=== PATIENT | male | born 1975 | race Two or more races ===

== ENCOUNTER 2019-12-24 12:03 | Day surgery (SDC) | payer BC, OTHER ==
[~2019-12-24 12:03] MED LIST: CEFAZOLIN SODIUM 1 GM in DEXTROSE 5%-WATER 50 ML IV PRN; LACTATED RINGERS 1000 ML IV PRN; LIDOCAINE 0.5% INJ-PF (5 MG/ML) 50 ML SDV SUBCUT PRN
[2019-12-24] MEDS ORDERED: MIDAZOLAM 2 MG/2 ML INJ ONE (12:53)
[2019-12-24] MEDS ORDERED: FENTANYL CITRATE INJ/PF 100 MCG/2 ML AMPUL ONE (12:53)
[2019-12-24] MEDS ORDERED: MORPHINE SULFATE 10 MG/ML INJ ONE (12:54)
[2019-12-24] MEDS ORDERED: ONDANSETRON HCL INJ/PF 4 MG/2 ML SDV ONE (12:54)
[2019-12-24] MEDS ORDERED: PROPOFOL INJ 200 MG/20 ML VIAL IV ONE (12:54)
[2019-12-24] MEDS ORDERED: DEXAMETHASONE SOD PHOSPHATE INJ 4 MG/1 ML VIAL ONE (12:54)
[2019-12-24] MEDS ORDERED: BUPIVACAINE HCL 0.5%-EPI 1:200000 INJ/PF 30 ML VIAL ONE (12:55)
[2019-12-24] MEDS ORDERED: CEFAZOLIN INJ 1 GM VIAL ONE (13:19)
[2019-12-24] MEDS ORDERED: BUPIVACAINE HCL 0.5%-EPI 1:200000 INJ/PF 30 ML VIAL INJ ONE (13:27)
[2019-12-24] MEDS ORDERED: MORPHINE SULFATE 10 MG/ML INJ IV PRN (13:29)
[2019-12-24] MEDS ORDERED: MEPERIDINE HCL/PF INJ 25 MG/1 ML DISP.SYRIN IV PRN (13:29)
[2019-12-24] MEDS ORDERED: DIPHENHYDRAMINE HCL 50 MG/ML VIAL IV PRN (13:29)
[2019-12-24] MEDS ORDERED: FENTANYL CITRATE INJ/PF 100 MCG/2 ML AMPUL IV PRN ×3 (13:29)
[2019-12-24] MEDS ORDERED: PROMETHAZINE HCL INJ 25 MG/1 ML VIAL IV PRN ×2 (13:29)
--- NOTE | 2019-12-24 13:42 | Operative Report ---
Nonrecallable Operative Report DATE OF SURGERY: 12/24/19 PREOPERATIVE DIAGNOSIS: mass posterior neck POSTOPERATIVE DIAGNOSIS: sebaceous cyst posterior neck OPERATION: Excision mass posterior neck SURGEON: JERAMIE KARIMI ANESTHESIA: LMAC TISSUE REMOVED OR ALTERED: Large sebaceous cyst posterior neck COMPLICATIONS: None ESTIMATED BLOOD LOSS: 10 cc INTRAOPERATIVE FINDINGS: Large 5 cm in diameter sebaceous cyst posterior neck PROCEDURE: Patient was brought to the operating awake alert stable condition placed in the upper table in a left lateral decubitus position and given IV sedation for the procedure. The large mass which was approximately 5 cm in diameter in the posterior neck was anesthetized with 1% lidocaine with epinephrine in an elliptical fashion around the mass. A elliptical incision was made around this 5 cm mass approximately 7 cm long by 3 cm wide. We then raised superior and inferior skin flaps with the Bovie cautery. Then using Bovie cautery dissected down to the deep subcutaneous precervical fascia with the Bovie cautery to encompass the entire mass and excised in total. It was excised with approximately a 0.5 cm margin circumferentially except at the point attached to the skin. After excision of the mass the deep subcutaneous tissue was reapproximated with interrupted 3-0 Vicryl and the skin was reapproximated with interrupted 3-0 nylon sterile dressing was applied to complete the procedure estimated blood loss was less than 10 cc. Patient was awakened in the operating transferred recovery in stable condition no complications Sponge needle counts were correct x2
--- NOTE | 2019-12-24 13:50 | Discharge Summary ---
Discharge Summary (SDC) - Discharge Final Diagnosis: Posterior neck mass Date of Surgery: 12/24/19 Condition: Good Prescriptions: Oxycodone HCl/Acetaminophen [Percocet 5-325 mg Tablet] 1 tab PO Q6HP PRN #15 tab PRN Reason: Oxycodone HCl/Acetaminophen [Percocet 7.5-325 mg Tablet] 1 - 2 tab PO Q6HP PRN #15 tab PRN Reason: Referrals: NATHAN COPELAND DO [Primary Care Provider] - Discharge Diet: As Tolerated Discharge Activity: Activity As Tolerated Report the Following to Your Physician Immediately: Nausea, Vomiting, Unusual Bleeding - Patient is to follow-up in surgical clinic in 10 to 14 days
[2019-12-24 19:12] VITALS: BP 139/99
== END 2019-12-24 15:20 | disposition home or self-care (01) ==
LOC: OROUT 12:03
PROVIDERS: ATTEND Surgery
DX: L72.0 Epidermal cyst (principal); I10 Essential (primary) hypertension; Z88.0 Allergy status to penicillin; G47.30 Sleep apnea, unspecified; Z87.891 Personal history of nicotine dependence; Z79.899 Other long term (current) drug therapy
CPT/HCPCS: 88305 ×2; 00300; 21555; J2250; J3490; J0690; J1100; J3010; J2405; J2704; 300; J2270; J7060

== ENCOUNTER → 2020-07-04 | Outpatient (CLI) | payer BC ==
[2020-07-04 09:16] LABS: HEMATOCRIT 41.9 % (37.9-51.0); HEMOGLOBIN 14.6 g/dL (13.5-17.0); MEAN CORPUSCULAR HEMOGLOBIN 29.7 pg (27.0-33.4); MEAN CORPUSCULAR VOLUME 85 fl (80-97); PLATELET COUNT 170 10^3/uL (150-450); RED BLOOD COUNT 4.94 10^6/uL (4.35-5.55); RED CELL DISTRIBUTION WIDTH 13.5 % (11.5-14.0)
[2020-07-04 09:39] LABS: ALBUMIN 4.2 g/dL (3.5-5.0); ALKALINE PHOSPHATASE 70 U/L (38-126); ANION GAP 7 (5-19); ASPARTATE AMINO TRANSFERASE 37 U/L (17-59); BILIRUBIN,DIRECT 0.2 mg/dL (0.0-0.4); BILIRUBIN,TOTAL 0.8 mg/dL (0.2-1.3); BLOOD UREA NITROGEN 13 mg/dL (7-20); CALCIUM 9.3 mg/dL (8.4-10.2); CARBON DIOXIDE 26 mmol/L (22-30); CHLORIDE 110 mmol/L (98-107); CHOLESTEROL 117.76 mg/dL (0-200); GLUCOSE 126 mg/dL (75-110); POTASSIUM 4.5 mmol/L (3.6-5.0); TOTAL PROTEIN 6.9 g/dL (6.3-8.2); TRIGLYCERIDES 170 mg/dL (<150)
[2020-07-04 09:52] LABS: DIRECT LDL 48 mg/dL (<100)
== END ==
LOC: OD 08:38
PROVIDERS: ATTEND Physician Assistant
DX: E78.5 Hyperlipidemia, unspecified (principal); I10 Essential (primary) hypertension; R06.00 Dyspnea, unspecified; R07.9 Chest pain, unspecified
CPT/HCPCS: 36415; 80048; 80061; 80076; 83735; 83880; 84443; 85027

== ENCOUNTER 2020-09-11 10:13 | Inpatient (IN) | payer BC ==
[2020-09-11 11:12] LABS: ABSOLUTE LYMPHOCYTES (AUTO) 0.9 10^3/uL (0.5-4.7); ABSOLUTE MONOCYTES (AUTO) 0.4 10^3/uL (0.1-1.4); ABSOLUTE NEUT (AUTO) 6.7 10^3/uL (1.7-8.2); BASOPHILS % (AUTO) 0.2 % (0-2); HEMATOCRIT 45.5 % (37.9-51.0); HEMOGLOBIN 15.8 g/dL (13.5-17.0); LYMPHOCYTES % (AUTO) 10.7 % (13-45); MEAN CORPUSCULAR HEMOGLOBIN 29.2 pg (27.0-33.4); MEAN CORPUSCULAR HGB CONC 34.6 g/dL (32.0-36.0); MEAN CORPUSCULAR VOLUME 84 fl (80-97); MONOCYTES % (AUTO) 4.7 % (3-13); RED BLOOD COUNT 5.39 10^6/uL (4.35-5.55); RED CELL DISTRIBUTION WIDTH 13.3 % (11.5-14.0); SEGMENTED NEUTROPHILS % (AUTO) 84.4 % (42-78); TOTAL CELLS COUNTED % (AUTO) 100 %; WHITE BLOOD COUNT 7.9 10^3/uL (4.0-10.5)
[2020-09-11] MEDS ORDERED: NORMAL SALINE 1000 ML 1,000 ML IV ONE ×2 (11:15→14:12)
[2020-09-11] MEDS ORDERED: METOPROLOL TARTRATE PF/INJ 5 MG/5 ML SDV IV ONE (11:16)
--- NOTE | 2020-09-11 11:17 | RADIOLOGY REPORT (SQ) ---
EXAM DESCRIPTION: CHEST SINGLE VIEW IMAGES COMPLETED DATE/TIME: 09/11/2020 11:02 am REASON FOR STUDY: SOB, CP COMPARISON: None to 2008 EXAM PARAMETERS: NUMBER OF VIEWS: One view. TECHNIQUE: Single frontal radiographic view of the chest acquired. RADIATION DOSE: NA LIMITATIONS: None. FINDINGS: LUNGS AND PLEURA: Low lung volumes. Minimal patchy parenchymal opacities. No pneumothora x. MEDIASTINUM AND HILAR STRUCTURES: No masses. Contour normal. HEART AND VASCULAR STRUCTURES: Heart normal in size. Normal vasculature. BONES: No acute findings. HARDWARE: None in the chest. OTHER: No other significant finding. IMPRESSION: Minimal patchy parenchymal opacities in the lungs with low lung volumes. Consistent wit h covid 19. TECHNICAL DOCUMENTATION: JOB ID: [id number] 2010 [employer]- All Rights Reserved Reading location - IP/workstation name: [email or web address]
--- NOTE | 2020-09-11 11:18 | ER Document Report ---
ED Respiratory Problem - General Chief Complaint: Breathing Difficulty Stated Complaint: DIFFICULTY BREATHING Time Seen by Provider: 09/11/20 10:40 Mode of Arrival: Ambulatory Notes: This 45-year-old man presents to the emergency department with a history of cough, shortness of breath and fatigue. He was also noted today to have a low- grade temperature. 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 His daughter tested positive for the coronavirus on September 03. He has not been tested and is concerned about his status. He denies nausea vomiting or diarrhea. He has a history of hypertension and tachycardia, has not taken his beta-macrina today. He denies chest pain or swelling/pain in the lower extremities. He is short of breath with any activity. TRAVEL OUTSIDE OF THE [place] IN LAST 30 DAYS: No - Related Data Allergies/Adverse Reactions: Penicillins Allergy (Verified 12/18/19 17:34) Past Medical History - Social History Smoking Status: Former Smoker Chew tobacco use (# tins/day): No Frequency of alcohol use: None Drug Abuse: None Family History: Reviewed & Not Pertinent Patient has homicidal ideation: No - Past Medical History Cardiac Medical History: Reports: Hx Hypertension Denies: Hx Coronary Artery Disease, Hx Heart Attack Pulmonary Medical History: Denies: Hx Asthma, Hx Bronchitis, Hx COPD, Hx Pneumonia Neurological Medical History: Denies: Hx Cerebrovascular Accident, Hx Seizures Musculoskeletal Medical History: Denies Hx Arthritis - Immunizations Hx Diphtheria, Pertussis, Tetanus Vaccination: No Review of Systems - Review of Systems Notes: Constitutional: + Fatigue, + chills. HENT: Negative for sore throat. Eyes: Negative for visual changes. Cardiovascular: Negative for chest pain. Respiratory: + Cough, + shortness of breath Gastrointestinal: See HPI Genitourinary: Negative for dysuria. Musculoskeletal: Negative for back pain. Skin: Negative for rash. Neurological: Negative for headaches, weakness or numbness. 10 point ROS negative except as marked above and in HPI. Physical Exam - Vital signs Vitals: Temp Resp Pulse Ox 99.7 F 28 H 96 09/11/20 10:32 09/11/20 10:32 09/11/20 10:32 - Notes Notes: PHYSICAL EXAMINATION: Physical Exam: General: Ill appearing 45-year-old male in no acute distress. HEENT: NC/AT, pupils equal round and reactive to light, MM moist,nares clear, oropharynx clear, airway patent Neck: supple, no adenopathy, no masses. Good range of motion Lungs: Coarse breath sounds CVS: Tachycardic rate and rhythm no murmur gallop or rub Abdomen: Soft, active, nontender, no masses, no hepatosplenomegaly Ext: No edema, clubbing or cyanosis. Neuro: Alert and responsive, moving all 4 extremities on command, cranial nerves intact, no focal findings Skin: Intact no open lesions, no rash Course - Re-evaluation Re-evalutation: 09/11/20 14:05 Patient with exposure to coronavirus positive Katherine now has shortness of breath cough and multiple symptoms with a chest x-ray and CT scan compatible with Covid19 pneumonia. I have discussed the findings with the patient as well as explained that he will need to be admitted to the hospital for management given his dyspnea and generalized weakness. We will continue IV fluids, he will get Decadron IV. And he will be admitted to the hospitalist inpatient service. I discussed the patient with the hospitalist, Dr. Beavers, he is in agreement with admitting the patient to the hospital for further treatment. - Vital Signs Vital signs: Temp Pulse Resp BP Pulse Ox 98.5 F 107 H 17 119/73 95 09/17/20 10:45 09/17/20 10:45 09/17/20 10:45 09/17/20 10:45 09/17/20 10:45 - Laboratory Result Diagrams: 09/16/20 04:45 09/14/20 05:07 Laboratory results interpreted by me: 09/11/20 09/11/20 09/11/20 10:50 10:50 10:50 Plt Count 93 L Lymph % (Auto) 10.7 L Seg Neutrophils % 84.4 H D-Dimer 1.47 H Creatinine 1.31 H Est GFR (MDRD) Non-Af 59 L Glucose 153 H COVID-19 (DANA) 09/11/20 13:00 Plt Count Lymph % (Auto) Seg Neutrophils % D-Dimer Creatinine Est GFR (MDRD) Non-Af Glucose COVID-19 (DANA) DETECTED A - Diagnostic Test Radiology reviewed: Image reviewed, Reports reviewed Radiology results interpreted by me: 09/11/20 14:08 Chest X-Ray 09/11/20 10:45 IMPRESSION: Minimal patchy parenchymal opacities in the lungs with low lung volumes. Consistent with covid 19. Chest/Abdomen CTA 09/11/20 11:17 IMPRESSION: No pulmonary emboli. Parenchymal opacities distribution typical of covid 19. Marked fatty liver. - EKG Interpretation by Al Rate: Tachycardia - EKG interpreted by Dr. Forrester: Sinus tachycardia, rate 124, DC interval 144 ms QT interval 292 ms, normal axis, premature atrial complexes, no acute ST or T wave abnormalities, no ischemic findings, there is no prior EKG for comparison. Interpretation sinus tachycardia, otherwise normal EKG. Discharge - Discharge Clinical Impression: Pneumonia due to COVID-19 virus, Dyspnea due to COVID-19, JAMEY (acute kidney injury), Tachycardia Hypertension Qualifiers: Hypertension type: unspecified Qualified Code(s): I10 - Essential (primary) hypertension Condition: Good Disposition: ADMITTED INPATIENT Admitting Provider: Ruthann (Hospitalist) Unit Admitted: Medical Floor
[2020-09-11 11:23] LABS: ALBUMIN 3.9 g/dL (3.5-5.0); ALKALINE PHOSPHATASE 54 U/L (38-126); ANION GAP 15 (5-19); ASPARTATE AMINO TRANSFERASE 49 U/L (17-59); BILIRUBIN,DIRECT 0.1 mg/dL (0.0-0.4); BLOOD UREA NITROGEN 16 mg/dL (7-20); CALCIUM 8.7 mg/dL (8.4-10.2); CARBON DIOXIDE 24 mmol/L (22-30); CHLORIDE 100 mmol/L (98-107); GLUCOSE 153 mg/dL (75-110); POTASSIUM 3.8 mmol/L (3.6-5.0); TOTAL PROTEIN 7.1 g/dL (6.3-8.2)
[2020-09-11 11:35] LABS: PLATELET COUNT 93 10^3/uL (150-450)
--- NOTE | 2020-09-11 12:04 | RADIOLOGY REPORT (SQ) ---
EXAM DESCRIPTION: CTA CHEST IMAGES COMPLETED DATE/TIME: 09/11/2020 11:48 am REASON FOR STUDY: Shortness of breath/tachycardia COMPARISON: None. TECHNIQUE: CT scan of the chest performed using helical scanning technique with dynamic intravenous contrast injection. Images reviewed with lung, soft tissue and bone windows. Reconstructed coronal and sagittal MPR images reviewed. Additional 3 dimensional post-processing performed to develop Maximal Intensity Projection images (MA P). All images stored on PACS. All CT scanners at this facility use dose modulation, iterative reconstruction, and/or weight based d osing when appropriate to reduce radiation dose to as low as reasonably achievable (ALARA). [facility]: Dose Right [facility]: CareDose [facility]: Dose Right [facility]: Teradose 4D [facility]: 60mo CONTRAST TYPE AND DOSE: contrast/concentration: Isovue 350.00 mmol/ml; Total Contrast Delivered: 98. 0 ml; Total Saline Delivered: 71.9 ml Contrast bolus adequate for pulmonary arteries and aorta. RENAL FUNCTION: None required. The patient is less than 50 years old. RADIATION DOSE: CT Rad equipment meets quality standard of care and radiation dose reduction techniq ues were employed. CTDIvol: 9.9 - 18.0 mGy. DLP: 626 mGy-cm. . LIMITATIONS: None. FINDINGS: LUNGS AND PLEURA: Patchy parenchymal opacities scattered throughout both lungs. No effusi ons. No pneumothorax. AORTA AND GREAT VESSELS: No aneurysm. Contrast bolus not optimized for the aorta. HEART: No pericardial effusion. No significant coronary artery calcifications. PULMONARY ARTERIES: No emboli visualized in the main pulmonary arteries or the segmental branches. HILAR AND MEDIASTINAL STRUCTURES: No identified masses or abnormal nodes. HARDWARE: None in the chest. UPPER ABDOMEN: Marked fatty liver. THYROID AND OTHER SOFT TISSUES: No masses. No adenopathy. BONES: No acute or significant finding. 3D MIPS: Confirm above findings. OTHER: No other significant finding. IMPRESSION: No pulmonary emboli. Parenchymal opacities distribution typical of covid 19. Marked fatty liver. COMMENT: Quality ID # [id number]: Final reports with documentation of one or more dose reduction techniques (e.g., Automated exposure control, adjustment of the mA and/or kV according to patient size, use of iterative reconstruction technique) TECHNICAL DOCUMENTATION: JOB ID: [id number] 2010 [employer]- All Rights Reserved Reading location - IP/workstation name: [email or web address]
[2020-09-11] MEDS ORDERED: DEXAMETHASONE SOD PHOS INJ 10 MG/1 ML VIAL IV ONE (14:14)
[2020-09-11] MEDS ORDERED: DEXAMETHASONE SOD PHOSPHATE INJ 4 MG/1 ML VIAL ONE (14:20)
[2020-09-11] MEDS ORDERED: ONDANSETRON 4 MG TAB.RAPDIS PO PRN (17:18)
[2020-09-11] MEDS ORDERED: ACETAMINOPHEN 325 MG TABLET PO PRN (17:18)
[2020-09-11] MEDS ORDERED: ONDANSETRON HCL INJ/PF 4 MG/2 ML SDV IV PRN (17:18)
[2020-09-11] MEDS ORDERED: IPRATROPIUM/ALBUTEROL 0.5-2.5 MG/3 ML AMPUL NEB PRN (17:18)
--- NOTE | 2020-09-11 18:17 | EKG REPORT ---
SEVERITY:- OTHERWISE NORMAL ECG - SINUS TACHYCARDIA ATRIAL PREMATURE COMPLEX : Confirmed by: Alfredo Tidwell MD 11-Sep-2020 18:16:45
--- NOTE | 2020-09-11 18:57 | PDOC H&P ---
History of Present Illness Admission Date/PCP: 09/11/20 14:55 TAVARES COLÓN PA-C History of Present Illness: NERYSOTERO ROSE is a 45 year old male with past medical history significant for HTN, HLD, CAD who presents with an 8-day history of progressive nausea/vomiting/diarrhea/headache/anosmia/dysgeusia/productive cough/shortness of breath/BRASWELL which prompted patient to come to the ED for further evaluation. 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 Patient is currently intermittently requiring supplemental oxygen but mostly breathing comfortably on room air. We have started him on dexamethasone. Chest x-ray was done which showed bilateral opacities and CTPA was done which showed no PE but did show bilateral groundglass opacities diffusely consistent with Covid pneumonia. D-dimer was elevated as well. On admission, patient has an JAMEY as well. Presumably this is prerenal due to systemic viral illness and dehydration from nausea/vomiting. Patient is admitted to the coronavirus isolation unit with continuous monitoring. Past Medical History Cardiac Medical History: Reports: Hypertension Denies: Coronary Artery Disease, Myocardial Infarction Pulmonary Medical History: Denies: Asthma, Bronchitis, Chronic Obstructive Pulmonary Disease (COPD), Pneumonia Neurological Medical History: Denies: Seizures Musculoskeltal Medical History: Denies: Arthritis Psychiatric Medical History: Denies: Depression Hematology: Denies: Anemia Past Surgical History Past Surgical History: Reports: None Social History Information Source: Patient, Emergency Med Personnel Lives with: Family Smoking Status: Former Smoker Cigarettes Packs Per Day: 1 Electronic Cigarette use?: No Number of Years Smokin Frequency of Alcohol Use: None Hx Recreational Drug Use: No Drugs: None Hx Prescription Drug Abuse: No - Advance Directive Resuscitation Status: Full Code Surrogate healthcare decision maker:: Admitting diagnosis: COVID-19 pneumonia All aspects of code status discussed with patient/POA including cardioversion, chest compressions, and intubation and the patient/POA indicated they wish to be full code MPOA is designated as: Ashley Miller, Time spent: Greater than 16 minutes Family History Family History: CAD Parental Family History Reviewed: Yes Children Family History Reviewed: Yes Sibling(s) Family History Reviewed.: Yes Medication/Allergy Home Medications: Aspirin [Ecotrin 81 mg EC Tablet] 81 mg PO DAILY 11/08/20 Atorvastatin Calcium [Lipitor 20 mg Tablet] 20 mg PO QHS 09/11/20 Losartan Potassium [Cozaar 25 mg Tablet] 25 mg PO DAILY 09/11/20 Metoprolol Tartrate [Lopressor 25 mg Tablet] 25 mg PO Q12 09/11/20 Allergies/Adverse Reactions: Penicillins Allergy (Verified 12/18/19 17:34) Review of Systems All systems: reviewed and no additional remarkable complaints except as stated - Per HPI otherwise negative Physical Exam Vital Signs: Temp Pulse Resp BP Pulse Ox 100.1 F 103 H 20 124/84 95 09/11/20 17:20 09/11/20 17:20 09/11/20 17:20 09/11/20 17:20 09/11/20 17:20 Intake & Output 09/10/20 09/11/20 09/12/20 06:59 06:59 06:59 Intake Total 1999 Balance 1999 Weight 102.8 kg Exam: General appearance: PRESENT: no acute distress, well-developed, well-nourished, -[place]ican male, states he is intermittently short of breath Head exam: PRESENT: atraumatic, normocephalic Eye exam: PRESENT: conjunctiva pink. ABSENT: scleral icterus Mouth exam: PRESENT: moist Respiratory exam: PRESENT: Scant bilateral fine rhonchi ABSENT: rales, wheezes Cardiovascular exam: PRESENT: RRR. ABSENT: diastolic murmur, rubs, systolic murmur GI/Abdominal exam: PRESENT: normal bowel sounds, soft. ABSENT: distended, guarding, mass, organolmegaly, rebound, tenderness Neurological exam: PRESENT: alert, awake, oriented to person, oriented to place, oriented to time, oriented to situation Psychiatric exam: PRESENT: appropriate affect, normal mood Skin exam: PRESENT: dry, intact, warm Results Laboratory Results: 09/11/20 10:50 09/11/20 10:50 09/11/20 09/11/20 10:50 10:50 WBC 7.9 RBC 5.39 Hgb 15.8 Hct 45.5 MCV 84 MCH 29.2 MCHC 34.6 RDW 13.3 Plt Count 93 L Seg Neutrophils % 84.4 H Sodium 138.8 Potassium 3.8 Chloride 100 Carbon Dioxide 24 Anion Gap 15 BUN 16 Creatinine 1.31 H Est GFR ( Amer) > 60 Glucose 153 H Calcium 8.7 Total Bilirubin 1.0 AST 49 Alkaline Phosphatase 54 Total Protein 7.1 Albumin 3.9 Impressions: Chest X-Ray 09/11/20 10:45 IMPRESSION: Minimal patchy parenchymal opacities in the lungs with low lung volumes. Consistent with covid 19. Chest/Abdomen CTA 09/11/20 11:17 IMPRESSION: No pulmonary emboli. Parenchymal opacities distribution typical of covid 19. Marked fatty liver. Assessment and Plan - Diagnosis (1) Pneumonia due to COVID-19 virus Is this a current diagnosis for this admission?: Yes Plan: Symptomatic 8 days prior to admission with nausea/vomiting/diarrhea/headache/tenesmus/dysgeusia/productive cough/shortness of breath/BRASWELL Started on dexamethasone for intermittent hypoxemia requiring supplemental oxygen of at least 2 L We will start remdesivir if patient worsens to meet criteria for this No specific indication for antibiotics at this time, no clear evidence of bacterial component Watch for secondary bacterial pneumonia development O2 monitoring Nebulizer treatments as needed (2) JAMEY (acute kidney injury) Is this a current diagnosis for this admission?: Yes Plan: Presumably prerenal due to nausea/vomiting/dehydration and systemic illness IV fluids Trend BMP (3) Acute hypoxemic respiratory failure due to COVID-19 Is this a current diagnosis for this admission?: Yes (4) HLD (hyperlipidemia) Is this a current diagnosis for this admission?: Yes Plan: Continue statin (5) CAD (coronary artery disease) Qualifiers: Coronary Disease-Associated Artery/Lesion type: [place] artery [place] vs. transplanted heart: [place] heart Associated angina: without angina Qualified Code(s): I25.10 - Atherosclerotic heart disease of [place] coronary artery with out angina pectoris Is this a current diagnosis for this admission?: Yes Plan: Follows with Dr. Segovia in cardiology Resume home medications (6) Hypertension Qualifiers: Hypertension type: unspecified Qualified Code(s): I10 - Essential (primary) hypertension Is this a current diagnosis for this admission?: Yes Plan: Controlled - Time Time Spent with patient: 35 or more minutes Medications reviewed and adjusted accordingly: Yes Anticipated Discharge Disposition: Home, Self Care Anticipated Discharge Timeframe: within 72 hours - Inpatient Certification Based on my medical assessment, after consideration of the patient's comorbidities, presenting symptoms, or acuity I expect that the services needed warrant INPATIENT care.: Yes I certify that my determination is in accordance with my understanding of Medicare's requirements for reasonable and necessary INPATIENT services [42 CFR 412.3e].: Yes Medical Necessity: Significant Comorbidiites Make Outpatient Treatment Too Risky, Need Close Monitoring Due to Risk of Patient Decompensation, Need For IV Fluids, Need for Nebulizer Therapy and Monitoring of Response, Risk of Complication if Not Cared For in Hospital, Risk of Diagnosis Which Will Require Inpatient Eval/Care/Monitoring
[2020-09-11] MEDS: RINGERS SOLUTION,LACTATED 1,000 ML IV PRN (21:00)
[2020-09-11] MEDS: METOPROLOL TARTRATE 25 MG TABLET PO SCH (21:22)
[2020-09-11] MEDS: ATORVASTATIN CALCIUM 20 MG TABLET PO SCH (21:23)
[2020-09-12] MEDS: GUAIFENESIN/CODEINE PHOS 100-10 MG/ 5 ML UDC PO PRN ×2 (01:40→09:46)
[2020-09-12 07:08] LABS: ABSOLUTE LYMPHOCYTES (AUTO) 0.7 10^3/uL (0.5-4.7); ABSOLUTE MONOCYTES (AUTO) 0.6 10^3/uL (0.1-1.4); ABSOLUTE NEUT (AUTO) 9.2 10^3/uL (1.7-8.2); BASOPHILS % (AUTO) 0.2 % (0-2); HEMATOCRIT 41.7 % (37.9-51.0); HEMOGLOBIN 14.6 g/dL (13.5-17.0); LYMPHOCYTES % (AUTO) 6.3 % (13-45); MEAN CORPUSCULAR HEMOGLOBIN 29.6 pg (27.0-33.4); MEAN CORPUSCULAR VOLUME 85 fl (80-97); MONOCYTES % (AUTO) 5.7 % (3-13); PLATELET COUNT 100 10^3/uL (150-450); RED BLOOD COUNT 4.94 10^6/uL (4.35-5.55); RED CELL DISTRIBUTION WIDTH 13.1 % (11.5-14.0); SEGMENTED NEUTROPHILS % (AUTO) 87.8 % (42-78); TOTAL CELLS COUNTED % (AUTO) 100 %; WHITE BLOOD COUNT 10.5 10^3/uL (4.0-10.5)
[2020-09-12 07:41] LABS: ANION GAP 9 (5-19); BLOOD UREA NITROGEN 16 mg/dL (7-20); CALCIUM 8.5 mg/dL (8.4-10.2); CARBON DIOXIDE 27 mmol/L (22-30); CHLORIDE 106 mmol/L (98-107); GLUCOSE 116 mg/dL (75-110); PHOSPHORUS 3.4 mg/dL (2.5-4.5); POTASSIUM 4.3 mmol/L (3.6-5.0)
[2020-09-12] MEDS ORDERED: INFLUENZA QUAD (6MOS+) 2020-21 VAC 0.5 ML SYR IM ONE (08:00)
[2020-09-12] MEDS ORDERED: PHARMACY COMMUNICATION ORDER MC NR (08:15)
[2020-09-12] MEDS: LOSARTAN POTASSIUM 25 MG TABLET PO SCH (09:36)
[2020-09-12] MEDS: ASPIRIN 81 MG TABLET, ENT COATED PO SCH (09:36)
[2020-09-12] MEDS: METOPROLOL TARTRATE 25 MG TABLET PO SCH ×2 (09:36→22:28)
[2020-09-12] MEDS: DOCUSATE SODIUM 100 MG CAPSULE PO SCH (09:36)
[2020-09-12] MEDS: ENOXAPARIN SODIUM INJ 40 MG/0.4 ML DISP.SYRIN SUBCUT SCH (09:37)
[2020-09-12] MEDS ORDERED: DEXAMETHASONE 4 MG TABLET PO SCH (10:00)
[2020-09-12] MEDS: RINGERS SOLUTION,LACTATED 1,000 ML IV PRN (13:46)
--- NOTE | 2020-09-12 17:01 | PDOC PROGRESS REPORT ---
Subjective Subjective:: EMIL ROSE is a 45 year old male with past medical history significant for HTN, HLD, CAD who presents with an 8-day history of progressive nausea/vomiting/diarrhea/headache/anosmia/dysgeusia/productive cough/shortness of breath/BRASWELL which prompted patient to come to the ED for further evaluation. 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 Patient is currently intermittently requiring supplemental oxygen but mostly breathing comfortably on room air. We have started him on dexamethasone. Chest x-ray was done which showed bilateral opacities and CTPA was done which showed no PE but did show bilateral groundglass opacities diffusely consistent with Covid pneumonia. D-dimer was elevated as well. On admission, patient has an JAMEY as well. Presumably this is prerenal due to systemic viral illness and dehydration from nausea/vomiting. Patient is admitted to the coronavirus isolation unit with continuous monitoring. 09/12/2020 Patient is now consistently requiring supplemental oxygen. He is continued on dexamethasone. I have added usual Covid supplements/vitamins. I have also ordered remdesivir. Patient is mildly tachycardic and is maintained on 3 L nasal cannula with an oxygen saturation 94%. Covid testing still pending, will hopefully have this back tomorrow. Patient has no new complaints otherwise. He remains in the Covid isolation unit. Reason For Visit: COVID 19, PNEUMONIA,ACUTE HYPOXEMIC RESPIRATORY Physical Exam Vital Signs: Temp Pulse Resp BP Pulse Ox 99.6 F 100 24 H 137/88 H 97 09/12/20 12:00 09/12/20 12:00 09/12/20 12:00 09/12/20 12:00 09/12/20 12:00 Intake & Output 09/11/20 09/12/20 09/13/20 06:59 06:59 06:59 Intake Total 1999 1000 Balance 1999 1000 Weight 106.7 kg Exam: General appearance: PRESENT: no acute distress, well-developed, well-nourished, -[place] male, states he is a bit more short of breath today Head exam: PRESENT: atraumatic, normocephalic Eye exam: PRESENT: conjunctiva pink. ABSENT: scleral icterus Mouth exam: PRESENT: moist Respiratory exam: PRESENT: Unchanged scant bilateral fine rhonchi ABSENT: rales, wheezes Cardiovascular exam: PRESENT: RRR. ABSENT: diastolic murmur, rubs, systolic murmur GI/Abdominal exam: PRESENT: normal bowel sounds, soft. ABSENT: distended, guarding, mass, organolmegaly, rebound, tenderness Neurological exam: PRESENT: alert, awake, oriented to person, oriented to place, oriented to time, oriented to situation Psychiatric exam: PRESENT: appropriate affect, normal mood Skin exam: PRESENT: dry, intact, warm Results Laboratory Results: 09/12/20 06:27 09/12/20 06:27 09/12/20 09/12/20 06:27 06:27 WBC 10.5 RBC 4.94 Hgb 14.6 Hct 41.7 MCV 85 MCH 29.6 MCHC 35.0 RDW 13.1 Plt Count 100 L Seg Neutrophils % 87.8 H Sodium 142.2 Potassium 4.3 Chloride 106 Carbon Dioxide 27 Anion Gap 9 BUN 16 Creatinine 1.04 Est GFR ( Amer) > 60 Glucose 116 H Calcium 8.5 Phosphorus 3.4 Magnesium 2.3 Impressions: Chest X-Ray 09/11/20 10:45 IMPRESSION: Minimal patchy parenchymal opacities in the lungs with low lung volumes. Consistent with covid 19. Chest/Abdomen CTA 09/11/20 11:17 IMPRESSION: No pulmonary emboli. Parenchymal opacities distribution typical of covid 19. Marked fatty liver. Assessment and Plan - Diagnosis (1) Pneumonia due to COVID-19 virus Is this a current diagnosis for this admission?: Yes (2) JAMEY (acute kidney injury) Is this a current diagnosis for this admission?: Yes (3) Acute hypoxemic respiratory failure due to COVID-19 Is this a current diagnosis for this admission?: Yes (4) HLD (hyperlipidemia) Is this a current diagnosis for this admission?: Yes (5) CAD (coronary artery disease) Qualifiers: Coronary Disease-Associated Artery/Lesion type: [place] artery [place] vs. transplanted heart: [place] heart Associated angina: without angina Qualified Code(s): I25.10 - Atherosclerotic heart disease of [place] coronary artery without angina pectoris Is this a current diagnosis for this admission?: Yes (6) Hypertension Qualifiers: Hypertension type: unspecified Qualified Code(s): I10 - Essential (primary) hypertension Is this a current diagnosis for this admission?: Yes - Plan Summary Summary: (1) Pneumonia due to COVID-19 virus Is this a current diagnosis for this admission?: Yes Plan: Symptomatic 8 days prior to admission with nausea/vomiting/diarrhea/headache/tenesmus/dysgeusia/productive cough/shortness of breath/BRASWELL Started on dexamethasone for intermittent hypoxemia requiring supplemental oxygen of at least 2 L Remdesivir ordered Started on usual COVID-19 supplements/vitamins No specific indication for antibiotics at this time, no clear evidence of bacterial component Watch for secondary bacterial pneumonia development O2 monitoring Nebulizer treatments as needed (2) JAMEY (acute kidney injury) Is this a current diagnosis for this admission?: Yes Plan: Presumably prerenal due to nausea/vomiting/dehydration and systemic illness IV fluids Trend BMP Resolved (3) Acute hypoxemic respiratory failure due to COVID-19 Is this a current diagnosis for this admission?: Yes Gradually worsened oxygen requirements (4) HLD (hyperlipidemia) Is this a current diagnosis for this admission?: Yes Plan: Continue statin (5) CAD (coronary artery disease) Qualifiers: Coronary Disease-Associated Artery/Lesion type: [place] artery [place] vs. transplanted heart: [place] heart Associated angina: without angina Qualified Code(s): I25.10 - Atherosclerotic heart disease of [place] coronary artery without angina pectoris Is this a current diagnosis for this admission?: Yes Plan: Follows with Dr. Segovia in cardiology Resume home medications (6) Hypertension Qualifiers: Hypertension type: unspecified Qualified Code(s): I10 - Essential (primary) hypertension Is this a current diagnosis for this admission?: Yes Plan: Controlled - Time Time Spent with patient: 35 or more minutes Medications reviewed and adjusted accordingly: Yes Anticipated Discharge Disposition: Home, Self Care Anticipated Discharge Timeframe: within 72 hours - Inpatient Certification Based on my medical assessment, after consideration of the patient's com orbidities, presenting symptoms, or acuity I expect that the services needed warrant INPATIENT care.: Yes I certify that my determination is in accordance with my understanding of Medicare's requirements for reasonable and necessary INPATIENT services [42 CFR 412.3e].: Yes Medical Necessity: Significant Comorbidiites Make Outpatient Treatment Too Risky, Need Close Monitoring Due to Risk of Patient Decompensation, Need for Nebulizer Therapy and Monitoring of Response, Risk of Complication if Not Cared For in Hospital, Risk of Diagnosis Which Will Require Inpatient Eval/Care/Monitoring
[2020-09-12] MEDS: CHOLECALCIFEROL (D3) 1,000 UNIT (25 MCG) TABLET PO SCH (17:38)
[2020-09-12] MEDS: ZINC SULFATE 220 MG CAPSULE PO SCH (17:39)
[2020-09-12] MEDS: ASCORBIC ACID 500 MG TABLET PO SCH (17:39)
[2020-09-12] MEDS ORDERED: FAMOTIDINE 20 MG TABLET PO ONE (19:00)
[2020-09-12] MEDS: ATORVASTATIN CALCIUM 20 MG TABLET PO SCH (22:28)
[2020-09-12] MEDS: MELATONIN 5 MG TABLET PO SCH (22:28)
[2020-09-13 02:26] LABS: ABSOLUTE LYMPHOCYTES (AUTO) 0.7 10^3/uL (0.5-4.7); ABSOLUTE MONOCYTES (AUTO) 0.2 10^3/uL (0.1-1.4); ABSOLUTE NEUT (AUTO) 10.6 10^3/uL (1.7-8.2); BASOPHILS % (AUTO) 0.2 % (0-2); HEMATOCRIT 40.6 % (37.9-51.0); MEAN CORPUSCULAR HEMOGLOBIN 29.1 pg (27.0-33.4); MEAN CORPUSCULAR HGB CONC 34.5 g/dL (32.0-36.0); MEAN CORPUSCULAR VOLUME 84 fl (80-97); MONOCYTES % (AUTO) 1.9 % (3-13); PLATELET COUNT 106 10^3/uL (150-450); RED BLOOD COUNT 4.81 10^6/uL (4.35-5.55); SEGMENTED NEUTROPHILS % (AUTO) 91.9 % (42-78); TOTAL CELLS COUNTED % (AUTO) 100 %; WHITE BLOOD COUNT 11.5 10^3/uL (4.0-10.5)
[2020-09-13 06:07] LABS: ANION GAP 11 (5-19); BLOOD UREA NITROGEN 19 mg/dL (7-20); CALCIUM 8.5 mg/dL (8.4-10.2); CARBON DIOXIDE 23 mmol/L (22-30); CHLORIDE 107 mmol/L (98-107); GLUCOSE 108 mg/dL (75-110); POTASSIUM 3.9 mmol/L (3.6-5.0)
[2020-09-13] MEDS ORDERED: RINGERS SOLUTION,LACTATED 1,000 ML IV PRN ×2 (06:38→07:57)
[2020-09-13] MEDS: ASPIRIN 81 MG TABLET, ENT COATED PO SCH (09:49)
[2020-09-13] MEDS: METOPROLOL TARTRATE 25 MG TABLET PO SCH ×2 (09:51→21:49)
[2020-09-13] MEDS: DEXAMETHASONE SOD PHOSPHATE INJ 4 MG/1 ML VIAL IV SCH (09:52)
[2020-09-13] MEDS: DOCUSATE SODIUM 100 MG CAPSULE PO SCH (09:52)
[2020-09-13] MEDS: ASCORBIC ACID 500 MG TABLET PO SCH ×2 (09:52→17:20)
[2020-09-13] MEDS: ZINC SULFATE 220 MG CAPSULE PO SCH (09:52)
[2020-09-13] MEDS: FAMOTIDINE 20 MG TABLET PO SCH ×2 (09:52→17:20)
[2020-09-13] MEDS: CHOLECALCIFEROL (D3) 1,000 UNIT (25 MCG) TABLET PO SCH (09:52)
[2020-09-13] MEDS: LOSARTAN POTASSIUM 25 MG TABLET PO SCH (09:52)
[2020-09-13] MEDS ORDERED: DEXAMETHASONE SOD PHOS INJ 10 MG/1 ML VIAL IV SCH (10:00)
[2020-09-13] MEDS ORDERED: REMDESIVIR (EUA) 200 MG in NORMAL SALINE 250 ML IV ONE (10:00)
--- NOTE | 2020-09-13 12:57 | PDOC PROGRESS REPORT ---
Subjective Date:: 09/13/20 Subjective:: EMIL ROSE is a 45 year old male with past medical history significant for HTN, HLD, CAD who presents with an 8-day history of progressive nausea/vomiting/diarrhea/headache/anosmia/dysgeusia/productive cough/shortness of breath/BRASWELL which prompted patient to come to the ED for further evaluation. 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 Patient is currently intermittently requiring supplemental oxygen but mostly breathing comfortably on room air. We have started him on dexamethasone. Chest x-ray was done which showed bilateral opacities and CTPA was done which showed no PE but did show bilateral groundglass opacities diffusely consistent with Covid pneumonia. D-dimer was elevated as well. On admission, patient has an JAMEY as well. Presumably this is prerenal due to systemic viral illness and dehydration from nausea/vomiting. Patient is admitted to the coronavirus isolation unit with continuous monitoring. 09/12/2020 Patient is now consistently requiring supplemental oxygen. He is continued on dexamethasone. I have added usual Covid supplements/vitamins. I have also ordered remdesivir. Patient is mildly tachycardic and is maintained on 3 L nasal cannula with an oxygen saturation 94%. Covid testing still pending, will hopefully have this back tomorrow. Patient has no new complaints otherwise. He remains in the Covid isolation unit. 09/13/20 D3 hospital stay. Patient was seen and examined at bedside. He is currently on 5L NC saturating 96%. He reports that his breathing is much better today. He is COVID POSITIVE and has since been started on Remdesivir and dexamethasone. He had 1 episode of bloody bowel movement today. Hgb stable at 14, Plt 106. We will continue to see if he has further episodes but he is safe to receive DVT prophylaxis still. Reason For Visit: COVID 19, PNEUMONIA,ACUTE HYPOXEMIC RESPIRATORY Physical Exam Vital Signs: Temp Pulse Resp BP Pulse Ox 99.7 F 102 H 19 110/66 97 09/13/20 07:22 09/13/20 07:22 09/13/20 07:22 09/13/20 07:22 09/13/20 07:22 Intake & Output 09/12/20 09/13/20 09/14/20 06:59 06:59 06:59 Intake Total 1999 1650 1000 Output Total 550 Balance 1999 1100 1000 Weight 106.7 kg 107.5 kg General appearance: PRESENT: cooperative, mild distress Head exam: PRESENT: atraumatic, normocephalic Eye exam: PRESENT: EOMI, PERRLA Mouth exam: PRESENT: moist Neck exam: PRESENT: full ROM Respiratory exam: PRESENT: rales, symmetrical, tachypnea Cardiovascular exam: PRESENT: RRR, +S1, +S2 GI/Abdominal exam: PRESENT: normal bowel sounds, soft. ABSENT: rebound, tenderness Extremities exam: PRESENT: full ROM Musculoskeletal exam: PRESENT: full ROM Neurological exam: PRESENT: alert, awake, oriented to person, oriented to place, oriented to time Psychiatric exam: PRESENT: normal mood Results Laboratory Results: 09/13/20 02:08 09/13/20 04:32 09/13/20 09/13/20 02:08 04:32 WBC 11.5 H RBC 4.81 Hgb 14.0 Hct 40.6 MCV 84 MCH 29.1 MCHC 34.5 RDW 13.0 Plt Count 106 L Seg Neutrophils % 91.9 H Sodium 141.0 Potassium 3.9 Chloride 107 Carbon Dioxide 23 Anion Gap 11 BUN 19 Creatinine 0.85 Est GFR ( Amer) > 60 Glucose 108 Calcium 8.5 Impressions: Chest X-Ray 09/11/20 10:45 IMPRESSION: Minimal patchy parenchymal opacities in the lungs with low lung volumes. Consistent with covid 19. Chest/Abdomen CTA 09/11/20 11:17 IMPRESSION: No pulmonary emboli. Parenchymal opacities distribution typical of covid 19. Marked fatty liver. Assessment and Plan - Diagnosis (1) Acute hypoxemic respiratory failure due to COVID-19 Is this a current diagnosis for this admission?: Yes Plan: -Currently on 5 L nasal cannula saturating 96% -Secondary to Covid pneumonia -Currently on remdesivir day 1 and dexamethasone day 2 -Continue O2 support to maintain O2 saturation more than 93% -DuoNebs as needed - Incentive spirometry (2) Pneumonia due to COVID-19 virus Is this a current diagnosis for this admission?: Yes Plan: Symptomatic 8 days prior to admission with nausea/vomiting/diarrhea/headache/tenesmus/dysgeusia/productive cough/shortness of breath/BRASWELL -Covid test positive on dexamethasone 6 mg IV day 2 -Remdesivir day 1 - Vitamin C and D, zinc -Continue oxygen support (3) JAMEY (acute kidney injury) Is this a current diagnosis for this admission?: Yes Plan: - resolved Presumably prerenal due to nausea/vomiting/dehydration and systemic illness - will continue to monitor (4) CAD (coronary artery disease) Qualifiers: Coronary Disease-Associated Artery/Lesion type: [place] artery [place] vs. transplanted heart: [place] heart Associated angina: without angina Qualified Code(s): I25.10 - Atherosclerotic heart disease of [place] coronary artery without angina pectoris Is this a current diagnosis for this admission?: Yes Plan: Follows with Dr. Segovia in cardiology Resume home medications (5) HLD (hyperlipidemia) Is this a current diagnosis for this admission?: Yes Plan: Continue statin (6) Hypertension Qualifiers: Hypertension type: unspecified Qualified Code(s): I10 - Essential (primary) hypertension Is this a current diagnosis for this admission?: Yes Plan: Controlled - resumed home medications - Time Time Spent with patient: 25-34 minutes Medications reviewed and adjusted accordingly: Yes Anticipated Discharge Disposition: Home, Self Care Anticipated Discharge Timeframe: to be determined
[2020-09-13] MEDS: ATORVASTATIN CALCIUM 20 MG TABLET PO SCH (21:50)
[2020-09-13] MEDS: MELATONIN 5 MG TABLET PO SCH (21:50)
[2020-09-14 06:01] LABS: ABSOLUTE LYMPHOCYTES (AUTO) 0.8 10^3/uL (0.5-4.7); ABSOLUTE MONOCYTES (AUTO) 0.7 10^3/uL (0.1-1.4); ABSOLUTE NEUT (AUTO) 7.3 10^3/uL (1.7-8.2); BASOPHILS % (AUTO) 0.1 % (0-2); HEMATOCRIT 39.3 % (37.9-51.0); HEMOGLOBIN 13.6 g/dL (13.5-17.0); LYMPHOCYTES % (AUTO) 9.3 % (13-45); MEAN CORPUSCULAR HEMOGLOBIN 29.1 pg (27.0-33.4); MEAN CORPUSCULAR HGB CONC 34.6 g/dL (32.0-36.0); MEAN CORPUSCULAR VOLUME 84 fl (80-97); MONOCYTES % (AUTO) 8.1 % (3-13); PLATELET COUNT 131 10^3/uL (150-450); RED BLOOD COUNT 4.68 10^6/uL (4.35-5.55); RED CELL DISTRIBUTION WIDTH 12.9 % (11.5-14.0); SEGMENTED NEUTROPHILS % (AUTO) 82.5 % (42-78); TOTAL CELLS COUNTED % (AUTO) 100 %; WHITE BLOOD COUNT 8.9 10^3/uL (4.0-10.5)
[2020-09-14 06:25] LABS: ANION GAP 10 (5-19); BLOOD UREA NITROGEN 18 mg/dL (7-20); CALCIUM 8.6 mg/dL (8.4-10.2); CARBON DIOXIDE 23 mmol/L (22-30); CHLORIDE 109 mmol/L (98-107); GLUCOSE 134 mg/dL (75-110); POTASSIUM 4.4 mmol/L (3.6-5.0)
[2020-09-14] MEDS: CHOLECALCIFEROL (D3) 1,000 UNIT (25 MCG) TABLET PO SCH (10:06)
[2020-09-14] MEDS: ZINC SULFATE 220 MG CAPSULE PO SCH (10:06)
[2020-09-14] MEDS: DOCUSATE SODIUM 100 MG CAPSULE PO SCH (10:06)
[2020-09-14] MEDS: FAMOTIDINE 20 MG TABLET PO SCH ×2 (10:06→17:57)
[2020-09-14] MEDS: ASCORBIC ACID 500 MG TABLET PO SCH ×2 (10:06→17:57)
[2020-09-14] MEDS: ASPIRIN 81 MG TABLET, ENT COATED PO SCH (10:06)
[2020-09-14] MEDS: LOSARTAN POTASSIUM 25 MG TABLET PO SCH (10:06)
[2020-09-14] MEDS: ENOXAPARIN SODIUM INJ 40 MG/0.4 ML DISP.SYRIN SUBCUT SCH (10:07)
[2020-09-14] MEDS: METOPROLOL TARTRATE 25 MG TABLET PO SCH ×2 (10:07→21:18)
[2020-09-14] MEDS: DEXAMETHASONE SOD PHOSPHATE INJ 4 MG/1 ML VIAL IV SCH (10:07)
[2020-09-14] MEDS: REMDESIVIR (EUA) 100 MG in NORMAL SALINE 250 ML IV SCH (10:35)
--- NOTE | 2020-09-14 12:27 | PDOC PROGRESS REPORT ---
Subjective Date:: 09/14/20 Subjective:: EMIL ROSE is a 45 year old male with past medical history significant for HTN, HLD, CAD who presents with an 8-day history of progressive nausea/vomiting/diarrhea/headache/anosmia/dysgeusia/productive cough/shortness of breath/BRASWELL which prompted patient to come to the ED for further evaluation. 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 Patient is currently intermittently requiring supplemental oxygen but mostly breathing comfortably on room air. We have started him on dexamethasone. Chest x-ray was done which showed bilateral opacities and CTPA was done which showed no PE but did show bilateral groundglass opacities diffusely consistent with Covid pneumonia. D-dimer was elevated as well. On admission, patient has an JAMEY as well. Presumably this is prerenal due to systemic viral illness and dehydration from nausea/vomiting. Patient is admitted to the coronavirus isolation unit with continuous monitoring. 09/12/2020 Patient is now consistently requiring supplemental oxygen. He is continued on dexamethasone. I have added usual Covid supplements/vitamins. I have also ordered remdesivir. Patient is mildly tachycardic and is maintained on 3 L nasal cannula with an oxygen saturation 94%. Covid testing still pending, will hopefully have this back tomorrow. Patient has no new complaints otherwise. He remains in the Covid isolation unit. 09/13/20 D3 hospital stay. Patient was seen and examined at bedside. He is currently on 5L NC saturating 96%. He reports that his breathing is much better today. He is COVID POSITIVE and has since been started on Remdesivir and dexamethasone. He had 1 episode of bloody bowel movement today. Hgb stable at 14, Plt 106. We will continue to see if he has further episodes but he is safe to receive DVT prophylaxis still. 09/14/20 D4 Hospital stay. Patient was seen and examined at bedside. He is requiring less O2 support today, down to 2L from 5l. Breathing has improved according to him, appetite better. He remains afebrile. Reason For Visit: COVID 19, PNEUMONIA,ACUTE HYPOXEMIC RESPIRATORY Physical Exam Vital Signs: Temp Pulse Resp BP Pulse Ox 97.9 F 92 20 123/72 93 09/14/20 11:18 09/14/20 11:18 09/14/20 11:18 09/14/20 11:18 09/14/20 11:18 Intake & Output 09/13/20 09/14/20 09/15/20 06:59 06:59 06:59 Intake Total 1650 2250 Output Total 550 800 Balance 1100 1450 Weight 107.5 kg 108.2 kg General appearance: PRESENT: cooperative, mild distress Head exam: PRESENT: atraumatic, normocephalic Eye exam: PRESENT: EOMI, PERRLA Mouth exam: PRESENT: moist Neck exam: PRESENT: full ROM Respiratory exam: PRESENT: rales, symmetrical, unlabored Cardiovascular exam: PRESENT: RRR, +S1, +S2 GI/Abdominal exam: PRESENT: normal bowel sounds, soft. ABSENT: rebound, tenderness Extremities exam: PRESENT: full ROM Musculoskeletal exam: PRESENT: full ROM Neurological exam: PRESENT: alert, awake, oriented to person, oriented to place, oriented to time, oriented to situation Psychiatric exam: PRESENT: normal mood Results Laboratory Results: 09/14/20 05:07 09/14/20 05:07 09/14/20 09/14/20 05:07 05:07 WBC 8.9 RBC 4.68 Hgb 13.6 Hct 39.3 MCV 84 MCH 29.1 MCHC 34.6 RDW 12.9 Plt Count 131 L Seg Neutrophils % 82.5 H Sodium 142.2 Potassium 4.4 Chloride 109 H Carbon Dioxide 23 Anion Gap 10 BUN 18 Creatinine 0.79 Est GFR ( Amer) > 60 Glucose 134 H Calcium 8.6 09/12/20 04:40 Sputum Gram Stain - Final 09/12/20 04:40 Sputum Sputum Culture - Final Staphylococcus Aureus Haemophilus Influenzae Reduced Normal Radha Impressions: Chest X-Ray 09/11/20 10:45 IMPRESSION: Minimal patchy parenchymal opacities in the lungs with low lung volumes. Consistent with covid 19. Chest/Abdomen CTA 09/11/20 11:17 IMPRESSION: No pulmonary emboli. Parenchymal opacities distribution typical of covid 19. Marked fatty liver. Assessment and Plan - Diagnosis (1) Acute hypoxemic respiratory failure due to COVID-19 Is this a current diagnosis for this admission?: Yes Plan: -Currently on 2 L nasal cannula saturating 96% -Secondary to Covid pneumonia -Currently on remdesivir day 2 and dexamethasone day 3 -Continue O2 support to maintain O2 saturation more than 93% -DuoNebs as needed - Incentive spirometry (2) Pneumonia due to COVID-19 virus Is this a current diagnosis for this admission?: Yes Plan: Symptomatic 8 days prior to admission with nausea/vomiting/diarrhea/headache/tenesmus/dysgeusia/productive cough/shortness of breath/BRASWELL -Covid test positive on dexamethasone 6 mg IV day 3 -Remdesivir day 2 - Vitamin C and D, zinc -Continue oxygen support (3) JAMEY (acute kidney injury) Is this a current diagnosis for this admission?: Yes Plan: - resolved Presumably prerenal due to nausea/vomiting/dehydration and systemic illness - will continue to monitor (4) CAD (coronary artery disease) Qualifiers: Coronary Disease-Associated Artery/Lesion type: [place] artery [place] vs. transplanted heart: [place] heart Associated angina: without angina Qualified Code(s): I25.10 - Atherosclerotic heart disease of [place] coronary artery without angina pectoris Is this a current diagnosis for this admission?: Yes Plan: Follows with Dr. Segovia in cardiology Resume home medications (5) HLD (hyperlipidemia) Is this a current diagnosis for this admission?: Yes Plan: Continue statin (6) Hypertension Qualifiers: Hypertension type: unspecified Qualified Code(s): I10 - Essential (primary) hypertension Is this a current diagnosis for this admission?: Yes Plan: Controlled - resumed home medications - Time Time Spent with patient: 25-34 minutes Medications reviewed and adjusted accordingly: Yes Anticipated Discharge Disposition: Home, Self Care Anticipated Discharge Timeframe: to be determined
[2020-09-14] MEDS: ATORVASTATIN CALCIUM 20 MG TABLET PO SCH (21:12)
[2020-09-14] MEDS: MELATONIN 5 MG TABLET PO SCH (21:12)
[2020-09-15] MEDS: REMDESIVIR (EUA) 100 MG in NORMAL SALINE 250 ML IV SCH (10:28)
[2020-09-15] MEDS: DOCUSATE SODIUM 100 MG CAPSULE PO SCH ×2 (10:29→10:40)
[2020-09-15] MEDS: ASPIRIN 81 MG TABLET, ENT COATED PO SCH ×2 (10:29→10:41)
[2020-09-15] MEDS: DEXAMETHASONE SOD PHOSPHATE INJ 4 MG/1 ML VIAL IV SCH (10:29)
[2020-09-15] MEDS: ZINC SULFATE 220 MG CAPSULE PO SCH (10:29)
[2020-09-15] MEDS: ENOXAPARIN SODIUM INJ 40 MG/0.4 ML DISP.SYRIN SUBCUT SCH ×2 (10:29→10:32)
[2020-09-15] MEDS: METOPROLOL TARTRATE 25 MG TABLET PO SCH ×2 (10:29→23:08)
[2020-09-15] MEDS: LOSARTAN POTASSIUM 25 MG TABLET PO SCH (10:29)
[2020-09-15] MEDS: ASCORBIC ACID 500 MG TABLET PO SCH ×2 (10:29→17:35)
[2020-09-15] MEDS: FAMOTIDINE 20 MG TABLET PO SCH ×2 (10:29→17:34)
[2020-09-15] MEDS: CHOLECALCIFEROL (D3) 1,000 UNIT (25 MCG) TABLET PO SCH (10:54)
--- NOTE | 2020-09-15 13:00 | PDOC PROGRESS REPORT ---
Subjective Date:: 09/15/20 Subjective:: EMIL ROSE is a 45 year old male with past medical history significant for HTN, HLD, CAD who presents with an 8-day history of progressive nausea/vomiting/diarrhea/headache/anosmia/dysgeusia/productive cough/shortness of breath/BRASWELL which prompted patient to come to the ED for further evaluation. 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 Patient is currently intermittently requiring supplemental oxygen but mostly breathing comfortably on room air. We have started him on dexamethasone. Chest x-ray was done which showed bilateral opacities and CTPA was done which showed no PE but did show bilateral groundglass opacities diffusely consistent with Covid pneumonia. D-dimer was elevated as well. On admission, patient has an JAMEY as well. Presumably this is prerenal due to systemic viral illness and dehydration from nausea/vomiting. Patient is admitted to the coronavirus isolation unit with continuous monitoring. 09/12/2020 Patient is now consistently requiring supplemental oxygen. He is continued on dexamethasone. I have added usual Covid supplements/vitamins. I have also ordered remdesivir. Patient is mildly tachycardic and is maintained on 3 L nasal cannula with an oxygen saturation 94%. Covid testing still pending, will hopefully have this back tomorrow. Patient has no new complaints otherwise. He remains in the Covid isolation unit. 09/13/20 D3 hospital stay. Patient was seen and examined at bedside. He is currently on 5L NC saturating 96%. He reports that his breathing is much better today. He is COVID POSITIVE and has since been started on Remdesivir and dexamethasone. He had 1 episode of bloody bowel movement today. Hgb stable at 14, Plt 106. We will continue to see if he has further episodes but he is safe to receive DVT prophylaxis still. 09/14/20 D4 Hospital stay. Patient was seen and examined at bedside. He is requiring less O2 support today, down to 2L from 5l. Breathing has improved according to him, appetite better. He remains afebrile. 09/15/20 D5 hospital stay. Patient was seen and examined at bedside. He is doing well, off O2 support. No diarrhea, no abdominal pain, no SOB. He is eating well with good appetite. Reason For Visit: COVID 19, PNEUMONIA,ACUTE HYPOXEMIC RESPIRATORY Physical Exam Vital Signs: Temp Pulse Resp BP Pulse Ox 98.7 F 79 18 117/77 93 09/15/20 12:35 09/15/20 12:35 09/15/20 12:35 09/15/20 12:35 09/15/20 12:35 Intake & Output 09/14/20 09/15/20 09/16/20 06:59 06:59 06:59 Intake Total 2250 250 250 Output Total 800 Balance 1450 250 250 Weight 108.2 kg 109.1 kg General appearance: PRESENT: no acute distress, cooperative Head exam: PRESENT: atraumatic, normocephalic Eye exam: PRESENT: EOMI, PERRLA Mouth exam: PRESENT: moist Neck exam: PRESENT: full ROM Respiratory exam: PRESENT: rales, rhonchi, symmetrical, unlabored Cardiovascular exam: PRESENT: RRR, +S1, +S2 Pulses: PRESENT: +2 pedal pulses bilateral GI/Abdominal exam: PRESENT: normal bowel sounds, soft. ABSENT: rebound, tenderness Extremities exam: PRESENT: full ROM Musculoskeletal exam: PRESENT: full ROM Neurological exam: PRESENT: alert, awake, oriented to person, oriented to place, oriented to time, oriented to situation Psychiatric exam: PRESENT: normal mood Skin exam: PRESENT: normal color Results Laboratory Results: 09/14/20 05:07 09/14/20 05:07 09/12/20 04:40 Sputum Gram Stain - Final 09/12/20 04:40 Sputum Sputum Culture - Final Staphylococcus Aureus Haemophilus Influenzae Reduced Normal Radha Impressions: Chest X-Ray 09/11/20 10:45 IMPRESSION: Minimal patchy parenchymal opacities in the lungs with low lung volumes. Consistent with covid 19. Chest/Abdomen CTA 09/11/20 11:17 IMPRESSION: No pulmonary emboli. Parenchymal opacities distribution typical of covid 19. Marked fatty liver. Assessment and Plan - Diagnosis (1) Acute hypoxemic respiratory failure due to COVID-19 Is this a current diagnosis for this admission?: Yes Plan: -Currently on 2 L nasal cannula saturating 96% -Secondary to Covid pneumonia -Currently on remdesivir day 3 and dexamethasone day 4 -Continue O2 support to maintain O2 saturation more than 93% -DuoNebs as needed - Incentive spirometry (2) Pneumonia due to COVID-19 virus Is this a current diagnosis for this admission?: Yes Plan: Symptomatic 8 days prior to admission with nausea/vomiting/diarrhea/headache/tenesmus/dysgeusia/productive cough/shortness of breath/BRASWELL -Covid test positive on dexamethasone 6 mg IV day 4 -Remdesivir day 3 - Vitamin C and D, zinc -Continue oxygen support (3) JAMEY (acute kidney injury) Is this a current diagnosis for this admission?: Yes Plan: - resolved Presumably prerenal due to nausea/vomiting/dehydration and systemic illness - will continue to monitor (4) CAD (coronary artery disease) Qualifiers: Coronary Disease-Associated Artery/Lesion type: [place] artery [place] vs. transplanted heart: [place] heart Associated angina: without angina Qualified Code(s): I25.10 - Atherosclerotic heart disease of [place] coronary artery without angina pectoris Is this a current diagnosis for this admission?: Yes Plan: Follows with Dr. Segovia in cardiology Resume home medications (5) HLD (hyperlipidemia) Is this a current diagnosis for this admission?: Yes Plan: Continue statin (6) Hypertension Qualifiers: Hypertension type: unspecified Qualified Code(s): I10 - Essential (primary) hypertension Is this a current diagnosis for this admission?: Yes Plan: Controlled - resumed home medications - Time Time Spent with patient: 25-34 minutes Medications reviewed and adjusted accordingly: Yes Anticipated Discharge Disposition: Home, Self Care Anticipated Discharge Timeframe: to be determined
[2020-09-15] MEDS: ATORVASTATIN CALCIUM 20 MG TABLET PO SCH (23:08)
[2020-09-15] MEDS: MELATONIN 5 MG TABLET PO SCH (23:08)
[2020-09-16 06:07] LABS: ABSOLUTE LYMPHOCYTES (AUTO) 1.6 10^3/uL (0.5-4.7); ABSOLUTE NEUT (AUTO) 6.5 10^3/uL (1.7-8.2); BASOPHILS % (AUTO) 0.3 % (0-2); EOSINOPHILS % (AUTO) 0.3 % (0-6); HEMATOCRIT 41.4 % (37.9-51.0); LYMPHOCYTES % (AUTO) 17.7 % (13-45); MEAN CORPUSCULAR HEMOGLOBIN 28.5 pg (27.0-33.4); MEAN CORPUSCULAR HGB CONC 33.7 g/dL (32.0-36.0); MEAN CORPUSCULAR VOLUME 84 fl (80-97); MONOCYTES % (AUTO) 10.6 % (3-13); PLATELET COUNT 165 10^3/uL (150-450); RED BLOOD COUNT 4.91 10^6/uL (4.35-5.55); SEGMENTED NEUTROPHILS % (AUTO) 71.1 % (42-78); TOTAL CELLS COUNTED % (AUTO) 100 %; WHITE BLOOD COUNT 9.1 10^3/uL (4.0-10.5)
[2020-09-16] MEDS: FAMOTIDINE 20 MG TABLET PO SCH ×2 (10:17→17:45)
[2020-09-16] MEDS: CHOLECALCIFEROL (D3) 1,000 UNIT (25 MCG) TABLET PO SCH (10:17)
[2020-09-16] MEDS: ASPIRIN 81 MG TABLET, ENT COATED PO SCH (10:17)
[2020-09-16] MEDS: REMDESIVIR (EUA) 100 MG in NORMAL SALINE 250 ML IV SCH (10:17)
[2020-09-16] MEDS: LOSARTAN POTASSIUM 25 MG TABLET PO SCH (10:17)
[2020-09-16] MEDS: DOCUSATE SODIUM 100 MG CAPSULE PO SCH (10:17)
[2020-09-16] MEDS: ZINC SULFATE 220 MG CAPSULE PO SCH (10:17)
[2020-09-16] MEDS: ASCORBIC ACID 500 MG TABLET PO SCH ×2 (10:17→17:45)
[2020-09-16] MEDS: METOPROLOL TARTRATE 25 MG TABLET PO SCH ×2 (10:17→21:48)
[2020-09-16] MEDS: ENOXAPARIN SODIUM INJ 40 MG/0.4 ML DISP.SYRIN SUBCUT SCH (10:18)
[2020-09-16] MEDS: DEXAMETHASONE SOD PHOSPHATE INJ 4 MG/1 ML VIAL IV SCH (10:18)
--- NOTE | 2020-09-16 14:36 | PDOC PROGRESS REPORT ---
Subjective Date:: 09/16/20 Subjective:: EMIL ROSE is a 45 year old male with past medical history significant for HTN, HLD, CAD who presents with an 8-day history of progressive nausea/vomiting/diarrhea/headache/anosmia/dysgeusia/productive cough/shortness of breath/BRASWELL which prompted patient to come to the ED for further evaluation. Patient is a truck car and bus cleaner and states he has a sick contact family member at home with coronavirus. Patient is currently intermittently requiring supplemental oxygen but mostly breathing comfortably on room air. We have started him on dexamethasone. Chest x-ray was done which showed bilateral opacities and CTPA was done which showed no PE but did show bilateral groundglass opacities diffusely consistent with Covid pneumonia. D-dimer was elevated as well. On admission, patient has an JAMEY as well. Presumably this is prerenal due to systemic viral illness and dehydration from nausea/vomiting. Patient is admitted to the coronavirus isolation unit with continuous monitoring. 09/12/2020 Patient is now consistently requiring supplemental oxygen. He is continued on dexamethasone. I have added usual Covid supplements/vitamins. I have also ordered remdesivir. Patient is mildly tachycardic and is maintained on 3 L nasal cannula with an oxygen saturation 94%. Covid testing still pending, will hopefully have this back tomorrow. Patient has no new complaints otherwise. He remains in the Covid isolation unit. 09/13/20 D3 hospital stay. Patient was seen and examined at bedside. He is currently on 5L NC saturating 96%. He reports that his breathing is much better today. He is COVID POSITIVE and has since been started on Remdesivir and dexamethasone. He had 1 episode of bloody bowel movement today. Hgb stable at 14, Plt 106. We will continue to see if he has further episodes but he is safe to receive DVT prophylaxis still. 09/14/20 D4 Hospital stay. Patient was seen and examined at bedside. He is requiring less O2 support today, down to 2L from 5l. Breathing has improved according to him, appetite better. He remains afebrile. 09/15/20 D5 hospital stay. Patient was seen and examined at bedside. He is doing well, off O2 support. No diarrhea, no abdominal pain, no SOB. He is eating well with good appetite. 11/13/20 D6 hospital stay. Patient was seen and examined at bedside. Doing well overall . Eager to finish his treatment and go home tomorrow. Reason For Visit: COVID 19, PNEUMONIA,ACUTE HYPOXEMIC RESPIRATORY Physical Exam Vital Signs: Temp Pulse Resp BP Pulse Ox 98.5 F 91 16 115/76 93 09/16/20 11:28 09/16/20 11:28 09/16/20 11:28 09/16/20 11:28 09/16/20 11:28 Intake & Output 09/15/20 09/16/20 09/17/20 06:59 06:59 06:59 Intake Total 250 487 250 Balance 250 487 250 Weight 109.1 kg 103.4 kg General appearance: PRESENT: no acute distress, cooperative Head exam: PRESENT: atraumatic, normocephalic Eye exam: PRESENT: EOMI, PERRLA Mouth exam: PRESENT: moist Neck exam: PRESENT: full ROM Respiratory exam: PRESENT: clear to auscultation cori, symmetrical, unlabored Cardiovascular exam: PRESENT: RRR, +S1, +S2 Pulses: PRESENT: +2 pedal pulses bilateral GI/Abdominal exam: PRESENT: normal bowel sounds, soft. ABSENT: rebound, tenderness Extremities exam: PRESENT: full ROM Musculoskeletal exam: PRESENT: full ROM Neurological exam: PRESENT: alert, awake, oriented to person, oriented to place, oriented to time, oriented to situation Psychiatric exam: PRESENT: normal mood Skin exam: PRESENT: normal color Results Laboratory Results: 09/16/20 04:45 09/14/20 05:07 09/16/20 04:45 WBC 9.1 RBC 4.91 Hgb 14.0 Hct 41.4 MCV 84 MCH 28.5 MCHC 33.7 RDW 13.0 Plt Count 165 Seg Neutrophils % 71.1 Impressions: Chest X-Ray 09/11/20 10:45 IMPRESSION: Minimal patchy parenchymal opacities in the lungs with low lung volumes. Consistent with covid 19. Chest/Abdomen CTA 09/11/20 11:17 IMPRESSION: No pulmonary emboli. Parenchymal opacities distribution typical of covid 19. Marked fatty liver. Assessment and Plan - Diagnosis (1) Acute hypoxemic respiratory failure due to COVID-19 Is this a current diagnosis for this admission?: Yes Plan: -Currently on 2 L nasal cannula saturating 96% -Secondary to Covid pneumonia -Currently on remdesivir day 4 and dexamethasone day 5. Last dose of remdesivir tomorrow then discharge -Continue O2 support to maintain O2 saturation more than 93% -DuoNebs as needed - Incentive spirometry (2) Pneumonia due to COVID-19 virus Is this a current diagnosis for this admission?: Yes Plan: Symptomatic 8 days prior to admission with nausea/vomiting/diarrhea/headache/tenesmus/dysgeusia/productive cough/shortness of breath/BRASWELL - Covid test positive - on dexamethasone 6 mg IV day 4 - Remdesivir day 4 - Vitamin C and D, zinc -Continue oxygen support (3) JAMEY (acute kidney injury) Is this a current diagnosis for this admission?: Yes Plan: - resolved Presumably prerenal due to nausea/vomiting/dehydration and systemic illness - will continue to monitor (4) CAD (coronary artery disease) Qualifiers: Coronary Disease-Associated Artery/Lesion type: [place] artery [place] vs. transplanted heart: [place] heart Associated angina: without angina Qualified Code(s): I25.10 - Atherosclerotic heart disease of [place] coronary artery without angina pectoris Is this a current diagnosis for this admission?: Yes Plan: Follows with Dr. Segovia in cardiology Resume home medications (5) HLD (hyperlipidemia) Is this a current diagnosis for this admission?: Yes Plan: Continue statin (6) Hypertension Qualifiers: Hypertension type: unspecified Qualified Code(s): I10 - Essential (primary) hypertension Is this a current diagnosis for this admission?: Yes Plan: Controlled - resumed home medications - Time Time Spent with patient: 25-34 minutes Medications reviewed and adjusted accordingly: Yes Anticipated Discharge Disposition: Home, Self Care Anticipated Discharge Timeframe: within 48 hours
[2020-09-16] MEDS: ATORVASTATIN CALCIUM 20 MG TABLET PO SCH (21:48)
[2020-09-16] MEDS: MELATONIN 5 MG TABLET PO SCH (21:48)
[2020-09-17 08:28] VITALS: BP 119/73
--- NOTE | 2020-09-17 09:51 | EKG REPORT ---
SEVERITY:- BORDERLINE ECG - FAST SINUS ARRHYTHMIA, RATE [id number] BORDERLINE T ABNORMALITIES, INFERIOR LEADS : Confirmed by: Merced Peck 17-Sep-2020 09:51:01
[2020-09-17] MEDS: DEXAMETHASONE SOD PHOSPHATE INJ 4 MG/1 ML VIAL IV SCH (09:58)
[2020-09-17] MEDS: ENOXAPARIN SODIUM INJ 40 MG/0.4 ML DISP.SYRIN SUBCUT SCH (09:58)
[2020-09-17] MEDS: ASCORBIC ACID 500 MG TABLET PO SCH (09:59)
[2020-09-17] MEDS: METOPROLOL TARTRATE 25 MG TABLET PO SCH (09:59)
[2020-09-17] MEDS: FAMOTIDINE 20 MG TABLET PO SCH (09:59)
[2020-09-17] MEDS: ZINC SULFATE 220 MG CAPSULE PO SCH (09:59)
[2020-09-17] MEDS: DOCUSATE SODIUM 100 MG CAPSULE PO SCH (09:59)
[2020-09-17] MEDS: CHOLECALCIFEROL (D3) 1,000 UNIT (25 MCG) TABLET PO SCH (09:59)
[2020-09-17] MEDS: ASPIRIN 81 MG TABLET, ENT COATED PO SCH (10:00)
[2020-09-17] MEDS: LOSARTAN POTASSIUM 25 MG TABLET PO SCH (10:00)
[2020-09-17] MEDS: REMDESIVIR (EUA) 100 MG in NORMAL SALINE 250 ML IV SCH (10:02)
--- NOTE | 2020-09-17 13:23 | PDOC DISCHARGE SUMMARY ---
Impression - Admit/DC Date/PCP Admission Date/Primary Care Provider: 09/11/20 14:55 TAVARES COLÓN PA-C Discharge Date: 09/17/20 - Discharge Diagnosis (1) Acute hypoxemic respiratory failure due to COVID-19 Is this a current diagnosis for this admission?: Yes (2) Pneumonia due to COVID-19 virus Is this a current diagnosis for this admission?: Yes (3) JAMEY (acute kidney injury) Is this a current diagnosis for this admission?: Yes (4) CAD (coronary artery disease) Is this a current diagnosis for this admission?: Yes (5) HLD (hyperlipidemia) Is this a current diagnosis for this admission?: Yes (6) Hypertension Is this a current diagnosis for this admission?: Yes - Assessment Summary: (1) Acute hypoxemic respiratory failure due to COVID-19 Is this a current diagnosis for this admission?: Yes Plan: -Currently on 2 L nasal cannula saturating 96% -Secondary to Covid pneumonia -Currently on remdesivir day 4 and dexamethasone day 5. Last dose of remdesivir tomorrow then discharge -Continue O2 support to maintain O2 saturation more than 93% -DuoNebs as needed - Incentive spirometry (2) Pneumonia due to COVID-19 virus Is this a current diagnosis for this admission?: Yes Plan: Symptomatic 8 days prior to admission with na usea/vomiting/diarrhea/headache/tenesmus/dysgeusia/productive cough/shortness of breath/BRASWELL - Covid test positive - on dexamethasone 6 mg IV day 4 - Remdesivir day 4 - Vitamin C and D, zinc -Continue oxygen support (3) JAMEY (acute kidney injury) Is this a current diagnosis for this admission?: Yes Plan: - resolved Presumably prerenal due to nausea/vomiting/dehydration and systemic illness - will continue to monitor (4) CAD (coronary artery disease) Qualifiers: Coronary Disease-Associated Artery/Lesion type: [place] artery [place] vs. transplanted heart: [place] heart Associated angina: without angina Qualified Code(s): I25.10 - Atherosclerotic heart disease of [place] coronary artery without angina pectoris Is this a current diagnosis for this admission?: Yes Plan: Follows with Dr. Segovia in cardiology Resume home medications (5) HLD (hyperlipidemia) Is this a current diagnosis for this admission?: Yes Plan: Continue statin (6) Hypertension Qualifiers: Hypertension type: unspecified Qualified Code(s): I10 - Essential (primary) hypertension Is this a current diagnosis for this admission?: Yes Plan: Controlled - resumed home medications - Additional Information Resuscitation Status: Full Code Discharge Diet: Regular Discharge Activity: Activity As Tolerated Referrals: NATHAN COPELAND DO [NO LOCAL MD] - Prescriptions: Ascorbic Acid [Vitamin C 500 mg Tablet] 500 mg PO BID 30 Days #30 tablet Cholecalciferol (Vitamin D3) [Vitamin D3 1000 Unit Tablet] 1,000 unit PO DAILY 30 Days #30 tablet Zinc Sulfate [Zinc-220 Capsule] 220 mg PO DAILY 30 Days #30 capsule Home Medications: Aspirin [Ecotrin 81 mg EC Tablet] 81 mg PO DAILY 09/11/20 Atorvastatin Calcium [Lipitor 20 mg Tablet] 20 mg PO QHS 09/11/20 Losartan Potassium [Cozaar 25 mg Tablet] 25 mg PO DAILY 09/11/20 Metoprolol Tartrate [Lopressor 25 mg Tablet] 25 mg PO Q12 09/11/20 Ascorbic Acid [Vitamin C 500 mg Tablet] 500 mg PO BID 30 Days #30 tablet 09/17/20 Cholecalciferol (Vitamin D3) [Vitamin D3 1000 Unit Tablet] 1,000 unit PO DAILY 30 Days #30 tablet 09/17/20 Zinc Sulfate [Zinc-220 Capsule] 220 mg PO DAILY 30 Days #30 capsule 09/17/20 History of Present Illiness History of Present Illness: EMIL ROSE is a 45 year old male,with past medical history significant for HTN, HLD, CAD who presents with an 8-day history of progressive nausea/v omiting/diarrhea/headache/anosmia/dysgeusia/productive cough/shortness of breath/BRASWELL which prompted patient to come to the ED for further evaluation. 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 Patient is currently intermittently requiring supplemental oxygen but mostly breathing comfortably on room air. We have started him on dexamethasone. Chest x-ray was done which showed bilateral opacities and CTPA was done which showed no PE but did show bilateral groundglass opacities diffusely consistent with Covid pneumonia. D-dimer was elevated as well. On admission, patient has an JAMEY as well. Presumably this is prerenal due to systemic viral illness and dehydration from nausea/vomiting. Patient is admitted to the coronavirus isolation unit with continuous monitoring. Hospital Course Hospital Course: 09/12/2020 Patient is now consistently requiring supplemental oxygen. He is continued on dexamethasone. I have added usual Covid supplements/vitamins. I have also ordered remdesivir. Patient is mildly tachycardic and is maintained on 3 L nasal cannula with an oxygen saturation 94%. Covid testing still pending, will hopefully have this back tomorrow. Patient has no new complaints otherwise. He remains in the Covid isolation unit. 09/13/20 D3 hospital stay. Patient was seen and examined at bedside. He is currently on 5L NC saturating 96%. He reports that his breathing is much better today. He is COVID POSITIVE and has since been started on Remdesivir and dexamethasone. He had 1 episode of bloody bowel movement today. Hgb stable at 14, Plt 106. We will continue to see if he has further episodes but he is safe to receive DVT prophylaxis still. 09/14/20 D4 Hospital stay. Patient was seen and examined at bedside. He is requiring less O2 support today, down to 2L from 5l. Breathing has improved according to him, appetite better. He remains afebrile. 09/15/20 D5 hospital stay. Patient was seen and examined at bedside. He is doing well, off O2 support. No diarrhea, no abdominal pain, no SOB. He is eating well with good appetite. 09/16/20 D6 hospital stay. Patient was seen and examined at bedside. Doing well overall . Eager to finish his treatment and go home tomorrow. 09/17/20 D7 hospital stay. He is doing very well, last dose of remdesivir today then he is going home. Physical Exam Vital Signs: Temp Pulse Resp BP Pulse Ox 98.5 F 107 H 17 119/73 95 09/17/20 10:45 09/17/20 10:45 09/17/20 10:45 09/17/20 10:45 09/17/20 10:45 Intake & Output 09/16/20 09/17/20 09/18/20 06:59 06:59 06:59 Intake Total 487 250 250 Balance 487 250 250 Weight 103.4 kg 103.1 kg General appearance: PRESENT: no acute distress, cooperative Head exam: PRESENT: atraumatic, normocephalic Eye exam: PRESENT: EOMI, PERRLA Mouth exam: PRESENT: moist Neck exam: PRESENT: full ROM Respiratory exam: PRESENT: clear to auscultation cori, symmetrical, unlabored Cardiovascular exam: PRESENT: RRR, +S1, +S2 GI/Abdominal exam: PRESENT: normal bowel sounds, soft. ABSENT: rebound, tend erness Extremities exam: PRESENT: full ROM Musculoskeletal exam: PRESENT: full ROM Neurological exam: PRESENT: alert, awake, oriented to person, oriented to place, oriented to time, oriented to situation Psychiatric exam: PRESENT: normal mood Skin exam: PRESENT: normal color Results Laboratory Results: WBC 9.1 10^3/uL (4.0-10.5) 09/16/20 04:45 RBC 4.91 10^6/uL (4.35-5.55) 09/16/20 04:45 Hgb 14.0 g/dL (13.5-17.0) 09/16/20 04:45 Hct 41.4 % (37.9-51.0) 09/16/20 04:45 MCV 84 fl (80-97) 09/16/20 04:45 MCH 28.5 pg (27.0-33.4) 09/16/20 04:45 MCHC 33.7 g/dL (32.0-36.0) 09/16/20 04:45 RDW 13.0 % (11.5-14.0) 09/16/20 04:45 Plt Count 165 10^3/uL (150-450) 09/16/20 04:45 Lymph % (Auto) 17.7 % (13-45) 09/16/20 04:45 [place] % (Auto) 10.6 % (3-13) 09/16/20 04:45 Eos % (Auto) 0.3 % (0-6) 09/16/20 04:45 Baso % (Auto) 0.3 % (0-2) 09/16/20 04:45 Absolute Neuts (auto) 6.5 10^3/uL (1.7-8.2) 09/16/20 04:45 Absolute Lymphs (auto) 1.6 10^3/uL (0.5-4.7) 09/16/20 04:45 Absolute Monos (auto) 1.0 10^3/uL (0.1-1.4) 09/16/20 04:45 Absolute Eos (auto) 0.0 10^3/uL (0.0-0.6) 09/16/20 04:45 Absolute Basos (auto) 0.0 10^3/uL (0.0-0.2) 09/16/20 04:45 Seg Neutrophils % 71.1 % (42-78) 09/16/20 04:45 D-Dimer 1.47 ug/mL (0.00-0.50) H 09/11/20 10:50 Sodium 142.2 mmol/L (137-145) 09/14/20 05:07 Potassium 4.4 mmol/L (3.6-5.0) 09/14/20 05:07 Chloride 109 mmol/L (98-107) H 09/14/20 05:07 Carbon Dioxide 23 mmol/L (22-30) 09/14/20 05:07 Anion Gap 10 (5-19) 09/14/20 05:07 BUN 18 mg/dL (7-20) 09/14/20 05:07 Creatinine 0.79 mg/dL (0.52-1.25) 09/14/20 05:07 Est GFR ( Amer) > 60 (>60) 09/14/20 05:07 Est GFR (MDRD) Non-Af > 60 (>60) 09/14/20 05:07 Glucose 134 mg/dL (75-110) H 09/14/20 05:07 POC Glucose 119 mg/dL (70-110) H 09/13/20 01:37 Calcium 8.6 mg/dL (8.4-10.2) 09/14/20 05:07 Phosphorus 3.4 mg/dL (2.5-4.5) 09/12/20 06:27 Magnesium 2.3 mg/dL (1.6-2.3) 09/12/20 06:27 Total Bilirubin 1.0 mg/dL (0.2-1.3) 09/11/20 10:50 Direct Bilirubin 0.1 mg/dL (0.0-0.4) 09/11/20 10:50 Neonat Total Bilirubin Not Reportable 09/11/20 10:50 Neonat Direct Bilirubin Not Reportable 09/11/20 10:50 Neonat Indirect Bili Not Reportable 09/11/20 10:50 AST 49 U/L (17-59) 09/11/20 10:50 ALT 37 U/L (<50) 09/11/20 10:50 Alkaline Phosphatase 54 U/L (38-126) 09/11/20 10:50 Troponin I < 0.012 ng/mL 09/17/20 10:28 Total Protein 7.1 g/dL (6.3-8.2) 09/11/20 10:50 Albumin 3.9 g/dL (3.5-5.0) 09/11/20 10:50 COVID-19 Source See comment 09/11/20 13:00 COVID-19 (DANA) DETECTED (Not Detect) A 09/11/20 13:00 09/16/20 09/17/20 09/17/20 22:17 04:05 10:28 Troponin I < 0.012 < 0.012 < 0.012 Impressions: Chest X-Ray 09/11/20 10:45 IMPRESSION: Minimal patchy parenchymal opacities in the lungs with low lung volumes. Consistent with covid 19. Chest/Abdomen CTA 09/11/20 11:17 IMPRESSION: No pulmonary emboli. Parenchymal opacities distribution typical of covid 19. Marked fatty liver. Plan Plan of Treatment: He is getting go home on aspirin. Follow-up with primary care Time Spent: Greater than 30 Minutes Stroke Is this a Stroke Patient?: No Acute Heart Failure Is this a Heart Failure Patient?: No
== END 2020-09-17 13:55 | disposition home or self-care (01) | DRG 177 ==
LOC: ER 10:13 → EH 14:55 → 3N 16:18
PROVIDERS: ADMIT Internal Medicine; ATTEND Internal Medicine
PROC: XW033E5 Introduction of Remdesivir Anti-infective into Peripheral Vein, Percutaneous Approach, New Technology Group 5 (ICD-10-PCS; principal; 2020-09-13)
DX: U07.1 COVID-19 (principal); J12.89 Other viral pneumonia; J96.01 Acute respiratory failure with hypoxia; N17.9 Acute kidney failure, unspecified; I10 Essential (primary) hypertension; E86.0 Dehydration; I25.10 Atherosclerotic heart disease of native coronary artery without angina pectoris; E78.5 Hyperlipidemia, unspecified; Z79.82 Long term (current) use of aspirin; Z88.0 Allergy status to penicillin; Z87.891 Personal history of nicotine dependence; Z79.899 Other long term (current) drug therapy
CPT/HCPCS: 36415; 71045; 71275; 80048; 80053; 82962; 83735; 84100; 84484; 85025; 85379; 87070; 87077; 87186; 87205; 87635; 90471; 90686; 93005; 93010; 94799; 96361; 96374; 96375; 99285; C9803; G0008; J1100; J1650; J3490; J7030; J7050; J7120; J8540

== ENCOUNTER → 2020-10-24 | Outpatient (CLI) | payer BC ==
[2020-10-24 13:06] LABS: ALBUMIN 4.3 g/dL (3.5-5.0); ALKALINE PHOSPHATASE 65 U/L (38-126); ANION GAP 9 (5-19); ASPARTATE AMINO TRANSFERASE 27 U/L (17-59); BILIRUBIN,DIRECT 0.1 mg/dL (0.0-0.4); BILIRUBIN,TOTAL 0.9 mg/dL (0.2-1.3); BLOOD UREA NITROGEN 11 mg/dL (7-20); CALCIUM 9.6 mg/dL (8.4-10.2); CARBON DIOXIDE 26 mmol/L (22-30); CHLORIDE 108 mmol/L (98-107); CHOLESTEROL 124.06 mg/dL (0-200); GLUCOSE 90 mg/dL (75-110); POTASSIUM 4.7 mmol/L (3.6-5.0); TOTAL PROTEIN 7.3 g/dL (6.3-8.2); TRIGLYCERIDES 125 mg/dL (<150)
[2020-10-24 13:17] LABS: DIRECT LDL 48 mg/dL (<100)
== END ==
LOC: OD 11:46
PROVIDERS: ATTEND Physician Assistant
DX: E78.5 Hyperlipidemia, unspecified (principal); I10 Essential (primary) hypertension; R73.01 Impaired fasting glucose; Z79.899 Other long term (current) drug therapy
CPT/HCPCS: 36415; 80048; 80061; 80076; 83036